=== PATIENT | male | born 1970 | race Caucasian/White ===

== ENCOUNTER 2023-08-07 14:27 | Inpatient (IN) | payer OTHER ==
[2023-08-07 14:44] VITALS: BMI 16.5
[2023-08-07] MEDS ORDERED: BUPRENORPHINE HCL 150 MCG, BUPRENORPHINE HCL 75 MCG BC PRN (15:38)
[2023-08-07] MEDS ORDERED: cloNIDine HCL 0.1 MG TABLET PO ONE (15:38)
[2023-08-07] MEDS ORDERED: BUPRENORPHINE HCL 150 MCG, BUPRENORPHINE HCL 75 MCG BC ONE (15:38)
[2023-08-07] MEDS ORDERED: cloNIDine HCL 0.1 MG TABLET PO PRN (19:39)
[2023-08-08] MEDS ORDERED: BUPRENORPHINE HCL 150 MCG, BUPRENORPHINE HCL 75 MCG BC PRN
[2023-08-08] MEDS: BUPRENORPHINE HCL 150 MCG, BUPRENORPHINE HCL 75 MCG BC SCH ×2 (05:30→17:28)
[2023-08-08] MEDS ORDERED: MAG HYDROX/AL HYDROX/SIMETH 30 ML UNIT-DOSE CUP PO PRN (08:38)
[2023-08-08] MEDS ORDERED: IBUPROFEN 600 MG TABLET (FP) PO PRN (08:38)
[2023-08-08] MEDS ORDERED: BENZONATATE 200 MG CAPSULE PO PRN (08:38)
[2023-08-08] MEDS ORDERED: MAGNESIUM HYDROX 2400MG/30ML ORAL SUSPENSION 30 ML CUP PO PRN (08:38)
[2023-08-08] MEDS ORDERED: ONDANSETRON *ODT* 4 MG TABLET SL PRN (08:38)
[2023-08-08] MEDS ORDERED: hydrOXYzine PAMOATE 25 MG CAPSULE (FP) PO PRN (08:38)
[2023-08-08] MEDS ORDERED: BISMUTH SUBSALICYLATE 524 MG/30 ML PO PRN (08:38)
[2023-08-08] MEDS ORDERED: guaiFENesin 600 MG TABLET.ER (FP) PO PRN (08:38)
[2023-08-08] MEDS ORDERED: NALOXONE HCL (KLOXXADO) 8 MG SPRAY NS PRN (08:38)
[2023-08-08] MEDS ORDERED: IBUPROFEN 400 MG TABLET (FP) PO PRN (08:38)
[2023-08-08] MEDS ORDERED: ACETAMINOPHEN 325 MG TABLET (FP) PO PRN (08:38)
[2023-08-08] MEDS ORDERED: NALOXONE HCL 0.4 MG/ML VIAL IM PRN (08:38)
[2023-08-08] MEDS ORDERED: POLYETHYLENE GLYCOL (HEALTHYLAX) 3350 17 GM PACKET PO PRN (08:38)
[2023-08-08] MEDS ORDERED: BENZOCAINE/MENTHOL (CHLORASEPTIC ) LOZENGE MM PRN (08:38)
[2023-08-08] MEDS ORDERED: DICYCLOMINE HCL 10 MG CAPSULE PO PRN (08:38)
[2023-08-08] MEDS ORDERED: LOPERAMIDE HCL 2 MG CAPSULE PO PRN (08:38)
[2023-08-08] MEDS: PRENATAL VITAMINS W/ FOLIC ACID TABLET (FP) PO SCH (10:07)
[2023-08-08] MEDS: diazePAM 5 MG TABLET PO PRN ×2 (10:08→17:28)
[2023-08-08] MEDS: NICOTINE 14 MG/24 HOURS TOPICAL PATCH TD SCH (10:10)
[2023-08-08] MEDS: METHOCARBAMOL 500 MG TABLET PO PRN (22:38)
[2023-08-08] MEDS: THIAMINE HCL 100 MG TABLET (FP) PO SCH (22:38)
[2023-08-08] MEDS: MELATONIN 5 MG TABLETS PO SCH (22:41)
[2023-08-09] MEDS: diazePAM 5 MG TABLET PO PRN (06:05)
[2023-08-09] MEDS: BUPRENORPHINE HCL 450 MCG FILM BC SCH ×2 (06:06→17:23)
[2023-08-09 10:37] LABS: POTASSIUM 4.4 mmol/L (3.5-5.1)
[2023-08-09] MEDS: NICOTINE 14 MG/24 HOURS TOPICAL PATCH TD SCH (10:38)
[2023-08-09] MEDS: PRENATAL VITAMINS W/ FOLIC ACID TABLET (FP) PO SCH (10:38)
[2023-08-09 10:45] LABS: CALCIUM 9.4 mg/dL (8.5-10.1)
[2023-08-09 10:46] LABS: ALBUMIN 3.4 g/dl (3.4-5.0); BLOOD UREA NITROGEN 15.8 mg/dL (7-18)
[2023-08-09 10:49] LABS: CREATININE 0.7 mg/dL (0.55-1.3)
[2023-08-09 10:50] LABS: BILIRUBIN,TOTAL 0.9 mg/dL (0.2-1); HEMATOCRIT 42.8 % (35.4-49); HEMOGLOBIN 14.3 GM/dL (11.7-16.9); MCH 28.1 pg (25.7-33.7); MCHC 33.3 g/dl (32.0-35.9); MEAN CELL VOLUME 84.4 fl (80-96); MEAN PLT VOLUME 7.6 fl (7.5-11.1); PLATELET COUNT 288 10^3/uL (134-434); RBC 5.07 M/mm3 (4.00-5.60); RDW 14.4 % (11.9-15.9); WHITE BLOOD COUNT 7.9 K/mm3 (4.0-10.0)
[2023-08-09 11:01] LABS: TOT PROT 6.9 g/dl (6.4-8.2)
[2023-08-09] MEDS: MELATONIN 5 MG TABLETS PO SCH (22:18)
[2023-08-09] MEDS: THIAMINE HCL 100 MG TABLET (FP) PO SCH (22:18)
[2023-08-10] MEDS: METHOCARBAMOL 500 MG TABLET PO PRN (05:47)
[2023-08-10] MEDS ORDERED: BUPRENORPHINE/NALOXONE 4 MG/1 MG FILM PACKET SL SCH (06:00)
[2023-08-10 06:15] VITALS: BP 114/76; PULSE 68; RESP 17; TEMP 97.7
[2023-08-11] MEDS ORDERED: BUPRENORPHINE/NALOXONE 8 MG/2 MG FILM PACKET SL ONE (06:00)
== END 2023-08-10 08:35 | disposition left against medical advice (07) | DRG 770 ==
LOC: YASAS 14:27 → Y3N 16:05
PROVIDERS: ADMIT Allergy & Immunology; ATTEND Surgery
PROC: HZ2ZZZZ Detoxification Services for Substance Abuse Treatment (ICD-10-PCS; principal; 2023-08-07)
DX: F11.23 Opioid dependence with withdrawal (principal); F14.20 Cocaine dependence, uncomplicated; F17.210 Nicotine dependence, cigarettes, uncomplicated; F31.9 Bipolar disorder, unspecified; M54.50 Low back pain, unspecified; G89.29 Other chronic pain; Z88.6 Allergy status to analgesic agent; Z59.02 Unsheltered homelessness
CPT/HCPCS: 36415; 80053; 85027; 86780; 87635; 87811; 93005; 93010